=== PATIENT | male | born 1985 | race Caucasian/White ===

== ENCOUNTER 2020-11-12 00:51 | Emergency (ER) | payer BC, MEDICAID | END 2020-11-12 01:12 | disposition left against medical advice (07) | LOC: ER 00:55 | DX: F12.10 Cannabis abuse, uncomplicated ==

== ENCOUNTER 2020-12-04 19:23 | Emergency (ER) | payer MEDICAID ==
[~2020-12-04] VITALS: Ht 193 cm; Wt 117.9 kg
[2020-12-04 19:29] VITALS: BP 128/87
== END 2020-12-04 20:37 | disposition left against medical advice (07) ==
LOC: ER 19:23
DX: R10.84 Generalized abdominal pain (principal); Z53.21 Procedure and treatment not carried out due to patient leaving prior to being seen by health care provider

== ENCOUNTER 2024-04-11 16:10 | Emergency (ER) | payer MEDICAID ==
[~2024-04-11] VITALS: Ht 182.9 cm; Wt 115.0 kg
[2024-04-11 18:34] VITALS: BP 90/60; PULSE 60; RESP 18; TEMP 97.7; O2SAT 96
== END 2024-04-11 18:38 ==
LOC: EDBD 16:10 → EDUNIT# 16:10 → ER 16:13
DX: Z02.89 Encounter for other administrative examinations (principal); F19.10 Other psychoactive substance abuse, uncomplicated; E66.01 Morbid (severe) obesity due to excess calories; Z68.34 Body mass index [BMI] 34.0-34.9, adult
CPT/HCPCS: 93005